=== PATIENT | female | born 1990 | race Caucasian/White ===

== ENCOUNTER 2016-10-28 09:57 | Emergency (ER) | payer OTHER ==
[~2016-10-28] VITALS: Ht 152.4 cm; Wt 47.6 kg
--- NOTE | 2016-10-28 10:50 | NUR ---
DR HAN AT THE BEDSIDE FOR EVAL AND EXAM.
[2016-10-28] MEDS ORDERED: HYDROCODONE/APAP 5-325MG TABLET PO ONE (11:00)
[2016-10-28 11:11] LABS: BASOPHILS % (AUTO) 0.1 % (0.0-2.0); EOSINOPHILS % (AUTO) 0.4 % (0.0-7.0); HEMATOCRIT 39.1 % (37-47); HEMOGLOBIN 12.9 G/DL (12.0-16.0); LYMPHOCYTES # (AUTO) 1.4 K/UL (0.8-4.8); LYMPHOCYTES % (AUTO) 12.1 % (20.5-51.5); MEAN CORPUSCULAR HEMOGLOBIN 28.4 UUG (27.0-31.0); MEAN CORPUSCULAR HGB CONC 33 g/dL (32.0-37.0); MEAN CORPUSCULAR VOLUME 86.3 FL (81.0-99.0); MONOCYTES # (AUTO) 0.7 K/UL (0.1-1.30); MONOCYTES % (AUTO) 5.8 % (0.0-11.0); NEUTROPHILS # (AUTO) 9.5 K/UL (1.8-8.9); NEUTROPHILS % (AUTO) 81.6 % (38.5-71.5); PLATELET COUNT (AUTO) 187 K/UL (150-450); RED BLOOD CELL COUNT(AUTO) 4.53 MIL/UL (4.2-5.4); WHITE BLOOD COUNT (AUTO) 11.6 K/UL (4.0-11.2)
[2016-10-28 11:25] LABS: CREATININE 0.6 mg/dL (0.6-1.3); POTASSIUM 3.6 mmol/L (3.5-5.1)
[2016-10-28] MEDS ORDERED: IBUPROFEN 400 MG TABLET PO ONE (11:30)
[2016-10-28 11:31] LABS: BILIRUBIN,DIRECT 0.1 mg/dL (0.0-0.2); BILIRUBIN,TOTAL 0.4 mg/dL (0.2-1.0); TOTAL PROTEIN, SERUM 7.3 g/dL (6.4-8.2)
[2016-10-28] MEDS ORDERED: HYDROCODONE/APAP 5-325MG TABLET ONE (11:32)
[2016-10-28] MEDS ORDERED: IBUPROFEN 400 MG TABLET ONE (11:41)
--- NOTE | 2016-10-28 11:50 | NUR ---
PT BACK FROM, RESTING IN BED.
--- NOTE | 2016-10-28 12:55 | NUR ---
Patient discharged to home in stable conditon. Written and verbal after care instructions given. Patient verbalizes understanding of instructions.
[2016-10-28 12:56] VITALS: BP 110/60
== END 2016-10-28 12:57 | disposition home or self-care (01) ==
LOC: ER 09:57
DX: F41.0 Panic disorder [episodic paroxysmal anxiety] (principal); R29.0 Tetany; M54.40 Lumbago with sciatica, unspecified side; R42 Dizziness and giddiness
CPT/HCPCS: 36415; 70450; 72131; 84703; 85025; 93005; A4663